=== PATIENT | female | born 1945 | race Caucasian/White ===

== ENCOUNTER → 2022-11-25 14:51 | Outpatient (CLI) | payer MEDICARE, SELFPAY ==
--- NOTE | 2022-11-26 01:34 | DI.NM.S_ITS ---
DATE OF SERVICE: 11/25/2022 PROCEDURE: Exercise treadmill stress test without imaging. ORDERING PROVIDER: Dmitriy Garcia MD INDICATIONS: The patient is a 77-year-old female with a history of SVT. FINDINGS: 1. The patient was able to exercise for 7 minutes, 16 seconds on a standard Armin protocol suggesting excellent exercise capacity with an HERNANDEZ of -40%, achieving 7.3 METs. 2. She had a normal heart rate response to exercise, achieving a maximum heart rate of 144 BPM, (100% of her predicted maximum). She had a borderline hypertensive blood pressure response with a maximum blood pressure of 200/82. 3. She had no chest discomfort or other anginal symptoms. 4. Her resting ECG shows sinus rhythm with an occasional PAC but normal ST segments. There are no significant ST-segment shifts or arrhythmias with stress except for continued occasional PACs but no complex ectopy or arrhythmias. IMPRESSION: 1. Normal exercise treadmill stress test for ischemia. 2. Excellent exercise capacity without angina or arrhythmias except for occasional isolated PACs. Delroy Leong - JAVIER/rachel/walter doc#: [id number]/job#: [id number] dd: 11/25/2022 17:33:00 dt: 11/26/2022 01:28:00 DICTATING MD/COPIES TO: Edilson Simons MD; mDitriy Garcia MD COPIES MNE: CHRISSY;
== END ==
PROVIDERS: Family Provider Family Medicine; PCP Internal Medicine Cardiovascular Disease; Referring Provider Internal Medicine Cardiovascular Disease; Visit Provider Internal Medicine Cardiovascular Disease
DX: I47.1 Supraventricular tachycardia (principal); R00.2 Palpitations
CPT/HCPCS: 93017

== ENCOUNTER → 2024-12-05 15:09 | Outpatient (CLI) | payer MEDICARE, SELFPAY ==
--- NOTE | 2024-12-05 15:13 | DI.MRI.S_ITS ---
PROCEDURE: MR WRIST LT WO CON INDICATIONS: PAIN TECHNIQUE: Noncontrast coronal proton density fast spin echo and T2 fast spin echo with fat saturation; coronal 3-D gradient echo, axial T1 spin echo and T2 fast spin echo with fat saturation, sagittal T1 spin echo through the wrist. COMPARISON: None. FINDINGS: Image quality: Excellent. 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 Mild degenerative changes triscaphe joint. Marked marrow edema of the distal scaphoid extending to the scaphoid waist, with cortical irregularity, concerning for nondisplaced fracture of the scaphoid waist. Additional multifocal T2 hyperintensity within the carpal bones, nonspecific and may be degenerative. Moderate degenerative changes of the pieces form and triquetrum articulation. In addition, there is marked marrow edema of the distal radius diaphysis, partially visualized in the proximal aspect. Carpal ligaments: The scapholunate and lunotriquetral ligaments appear intact. In the absence of intra-articular contrast, the extrinsic carpal ligaments are not well identified. On sagittal images, the pisohamate ligament appears intact. Triangular fibrocartilage complex: The triangular fibrocartilage appears intact. The adjacent meniscal homolog appears normal in the absence of intra-articular contrast. The extensor carpi ulnaris tendon is normal in location and morphology. Tendons and soft tissues: The carpal tunnel structures appear normal, including the median nerve. The ulnar nerve appears normal within Guyon's canal. Low-grade interstitial tear of the extensor carpi ulnaris, at the level of the proximal carpal row. No ganglion cyst. IMPRESSION: 1. Findings concerning for nondisplaced fracture of the scaphoid waist, with marked marrow edema. Recommend further evaluation CT. 2. Marked marrow edema of the distal radial diaphysis, partially visualized. Recommend further evaluation CT or radiograph. 3. Low-grade tear of the extensor carpi ulnaris. 4. Degenerative changes described above. Dictated by: Rosy Davis M.D. on 12/05/2024 at 17:49 Approved by: Rosy Davis M.D. on 12/05/2024 at 17:56
== END ==
LOC: MRI 15:11
PROVIDERS: Family Provider Family Medicine; PCP Internal Medicine Cardiovascular Disease; Referring Provider Nurse Practitioner; Visit Provider Nurse Practitioner
DX: S66.812A Strain of other specified muscles, fascia and tendons at wrist and hand level, left hand, initial encounter (principal); M25.532 Pain in left wrist
CPT/HCPCS: 73221

== ENCOUNTER → 2024-12-12 10:32 | Outpatient (CLI) | payer MEDICARE, SELFPAY ==
--- NOTE | 2024-12-12 10:34 | DI.CT.S_ITS ---
PROCEDURE: CT WRIST LEFT WITHOUT CON INDICATIONS: WRIST PAIN/PRIOR ABNORMAL MRI TECHNIQUE: Noncontrast 1 mm axial sections acquired through the carpal bones, with coronal and sagittal reformats. For radiation dose reduction, the following was used: automated exposure control, adjustment of mA and/or kV according to patient size. COMPARISON: [facility], MR, MR WRIST LT WO CON, 12/05/2024, 15:19. FINDINGS: Image quality: Excellent. Bones: Minimally displaced transverse fracture at the waist of the scapula. A few small comminuted fracture fragments are seen along the fracture line. No osseous bridging. No osteonecrosis of the proximal pole. Carpal bones are normally aligned. Moderate to severe degenerative changes at the 1st carpometacarpal joint with small subacute shins along the volar joint line. Background mild to moderate degenerative changes are seen throughout the wrist. Soft tissues: Small radiocarpal effusion. The articular cartilages, ligaments, tendons are not well evaluated with CT. The visualized musculature is normal in bulk. IMPRESSION: 1. Minimally displaced and comminuted transverse fracture of the waist of the scaphoid. No proximal pole osteonecrosis. 2. No osseous abnormality is seen in the distal radius in the region of the previously seen edema on MRI from 12/01/2024, possibly osseous contusion. Approved by: Dao Schaefer M.D. on 12/12/2024 at 13:00
== END ==
PROVIDERS: Family Provider Family Medicine; PCP Internal Medicine Cardiovascular Disease; Referring Provider Nurse Practitioner; Visit Provider Nurse Practitioner
DX: S62.015A Nondisplaced fracture of distal pole of navicular [scaphoid] bone of left wrist, initial encounter for closed fracture (principal); T14.8XXA Other injury of unspecified body region, initial encounter; X58.XXXA Exposure to other specified factors, initial encounter
CPT/HCPCS: 73200